=== PATIENT | male | born 1990 | race African-American/Black ===

== ENCOUNTER 2016-10-06 00:18 | Emergency (ER) | payer OTHER ==
[~2016-10-06] VITALS: Ht 154.9 cm; Wt 64.6 kg
[~2016-10-06 00:18] MED LIST: ATIVAN1 MG PO; ERY-TAB500 MG PO; MULTIVITAMIN1 EAC1 PO; PAROXETINE HCL10 MG PO; TRAZODONE HCL50 MG PO; ZOFRAN4 MG PO
[2016-10-06 00:49] LABS: ADD MIUA? NO; BILIRUBIN NEGATIVE; BLOOD NEGATIVE; COLOR YELLOW ((YELLOW)); GLUCOSE (STRIP) NEGATIVE; KETONES NEGATIVE; LEUKOCYTES NEGATIVE; NITRITE NEGATIVE; PROTEIN (STRIP) NEGATIVE; SPECIFIC GRAVITY 1.023 (1.000-1.030); UCUL ADDED? NO; UROBILINOGEN 0.2 MG/DL (0.2-1.0)
[2016-10-06] MEDS ORDERED: KEFLEX500 MG PO (01:38)
[2016-10-06] MEDS ORDERED: MOTRIN600 MG PO (01:38)
[2016-10-06 02:01] VITALS: BP 127/75
== END 2016-10-06 02:12 | disposition home or self-care (01) ==
LOC: EME 00:18
DX: N49.2 Inflammatory disorders of scrotum (principal); Z87.440 Personal history of urinary (tract) infections
CPT/HCPCS: 76870; 81003; 99281; 99284

== ENCOUNTER 2017-03-10 01:28 | Emergency (ER) | payer OTHER ==
[~2017-03-10] VITALS: Ht 162.6 cm; Wt 67.7 kg
[~2017-03-10 01:28] MED LIST changes: +KEFLEX500 MG PO; +MOTRIN600 MG PO
[2017-03-10 02:02] VITALS: BP 159/103
== END 2017-03-10 02:04 | disposition home or self-care (01) ==
LOC: EME 01:28
DX: H61.21 Impacted cerumen, right ear (principal)
CPT/HCPCS: 99281; 99283

== ENCOUNTER 2017-10-18 19:41 | Emergency (ER) | payer OTHER ==
[~2017-10-18] VITALS: Ht 165.1 cm; Wt 71.0 kg
[2017-10-18] MEDS ORDERED: ANTIVERT25 MG PO (20:03)
[2017-10-18 21:20] VITALS: BP 125/76
== END 2017-10-18 21:23 | disposition home or self-care (01) ==
LOC: EME 19:41
DX: H81.10 Benign paroxysmal vertigo, unspecified ear (principal); F41.9 Anxiety disorder, unspecified; F32.9 Major depressive disorder, single episode, unspecified
CPT/HCPCS: 99281; 99283